=== PATIENT | female | born 1985 | race Caucasian/White ===

== ENCOUNTER 2018-01-05 22:21 | Emergency (ER) | payer SELFPAY ==
[2018-01-05] MEDS ORDERED: HYDROcodone/Acetaminophen 10/325 mg Tablet ONE (23:22)
[2018-01-05] MEDS ORDERED: Ibuprofen 800 MG TAB ONE (23:23)
[2018-01-05] MEDS ORDERED: Amoxicillin/Potassium Clav 875 MG TAB ONE (23:23)
[2018-01-05] MEDS ORDERED: Oseltamivir 75 MG CAP ONE (23:23)
== END 2018-01-05 23:50 | disposition home or self-care (01) ==
LOC: MADERS 22:21
DX: J02.9 Acute pharyngitis, unspecified (principal); F32.9 Major depressive disorder, single episode, unspecified; F41.9 Anxiety disorder, unspecified; F17.210 Nicotine dependence, cigarettes, uncomplicated
CPT/HCPCS: J7620